=== PATIENT | male | born 1965 | race Caucasian/White ===

== ENCOUNTER 2018-09-25 16:15 | Inpatient (IN) | payer OTHER ==
[~2018-09-25] VITALS: Ht 185.4 cm; Wt 68.9 kg
[2018-09-25 16:16] VITALS: BP 121/73
[2018-09-25 20:25] VITALS: BP 119/71
[2018-09-25 21:10] VITALS: BP 136/85
[2018-09-25 22:10] LABS: CALCIUM 8.8 mg/dL (8.5-10.1); CREATININE 0.6 mg/dL (0.7-1.3); POTASSIUM 3.9 mmol/L (3.5-5.1)
--- NOTE | 2018-09-26 02:42 | NUR ---
PT ARRIVED TO UNIT APPROX 2100 IN STABLE CONDITION, ADMISSION AND ASSESSMENT COMPLETED, CONSENTS SIGNED. PT C/O RIGHT HIP PAIN, MAINTAINING BEDREST PENDING ORTHO AND PT CONSULTS. ALSO CONSULTED CM FOR PLANNING. DENIES SOB OR NAUSEA. HAS A CONGESTED COUGH, REPORTS SMOKING 1/2-1 PPD CIGARETTES. UNKEMPT, MULTIPLE TATTOOS, SCABS/SCARS, BUT NO OPEN WOUNDS NOTED. IV FLUIDS STARTED; GOOD URINE OUPUT, VERY DARK YVONNE IN COLOR. GIVEN A SNACK AT HS. NO OTHER CONCERNS, WILL CONTINUE TO MONITOR.
[2018-09-26 06:00] VITALS: BP 134/77
[2018-09-26 07:41] VITALS: BP 136/77
--- NOTE | 2018-09-26 12:28 | NUR ---
PT ALERT XS 4 PLEASANT AND COOPERATIVE WITH CARE. IV FLUIDS DCD. PRN PO PAIN MED GIVEN. LUNGS COARSE BOWEL SOUNDS POSITIVE. PT TO HAVE PT/OT AND ASSESED FOR CANE OR WALKER. DR LYONS HERE AND STATES TO PATIENT NO SURGERY NEEDED. PT TO MOVE TO SENIOR SUITES ROOM 224.
--- NOTE | 2018-09-26 12:44 | NUR ---
PT ADMITTED RELATED TO RT ILIUM/ANTERIOR COLUMN ACETABULAR FX. CM REVIEWED CHART AND SPOKE WITH CARE TEAM. CM MET WITH PT AT BEDSIDE THIS DAY. PT IS A&O X4. CM ROLE INTRODUCED. PT INDICATED HE HAD BEEN LIVING ON THE STREETS [facility]. PT INDICATED HE HAD GONE TO [facility] AND WAS REFERRED TO [facility] WHEN HE HAD INITIALLY SUSTAINED THIS INJURY ON July. HE INDICATED HE DOESN'T HAVE A PCP OR A CLINIC HE FOLLOW AT IN THE COMMUNITY. PT INDICATED HIS FRIEND LYLE ARIAS IS A GOOD CONTACT FOR HIM . ORTHO INDICATED NO SURGERY IS INDICATED BUT THAT PT WILL BE TOUCH DOWN WEIGHT BEARING FOR 6WEEKS WITH CRTCHES OR A FWW. CM TO FOLLOW INDICATED WITH DC PLANNING.
[2018-09-26 13:24] VITALS: BP 130/87
--- NOTE | 2018-09-26 13:37 | NUR ---
PATIENT ARRIVED TO UNIT AT APPROX 1310 FROM 4E ROOM #418. PATIENT SETTLED TO UNIT AND MEAL TRAY SETUP. CALL LIGHT WITHIN REACH.
[2018-09-26 21:06] VITALS: BP 110/80
--- NOTE | 2018-09-27 04:43 | NUR ---
Assumed pt care at 1900. Pt A/OX4,VSS.C/o pain to right ribcage/hip LOP 810 medicated with Laramie per EMAR with partial relief reported. Pt is on a touchdown weight bearing limitation to RLE,only up side of bed to use urinal at night. Does have a congested non productive cough.Pt has a strong body odor prompted at HS to take a shower and again at this time but he has declined stating not now will continue to encourage pt to take a shower. Pt resting quietly with no distress noted,calls appropriately.Call light/personal items within reach.
--- NOTE | 2018-09-27 08:19 | NUR ---
A&0X4, IS NOT AMBULATING AT THIS TIME, STATES HE THINKS HE NEEDS SURGERY, ENCOURAGED HIM TO MAKE POSITION CHANGES IN BED HE STATES HE CANNOT GET UP, REPORTS STATES HES UP WITH PT. DIDN'T SEE ANY VISIBLE BRUISING ON R SIDE, SHOWED HIM, AGAIN, HOW TO USE CALL LIGHT FOR ANY NEEDS WELL THE BED CONTROLS, GAVE EDUCATION ABOUT BOWEL MEDS ACCOMPANYING HIS PAIN MEDICATION. DENIES NEED FOR NICOTINE PATCH. ENCOURAGED HIM TO USE CALL LIGHT FOR ANY NEEDS
[2018-09-27 09:03] VITALS: BP 114/83
--- NOTE | 2018-09-27 11:52 | NUR ---
SW reviewed chart and spoke with nursing and attending physician. [facility] will evaluate or for possible admission to input acute rehab. [employer] to meet with pt to see if pt will qualify for a Medicaid or financial assistance. SW is following to assist as needed with discharge planning.
[2018-09-27 19:49] VITALS: BP 135/84
--- NOTE | 2018-09-28 06:34 | NUR ---
Assumed pt care at 1900. Pt is A/OX4.VSS. C/o right hip/ribs pain,medicated per EMAR with relief reported. Pt is on a toe touch weight bearing limitation on RLE,up to the side of the bed to use urinal at night.Bed alarm on and pt re-educated on fall safety since he doesn't call for help and verbalizes understanding protocol.Voiding adequately. Resting quietly with eyes closed no distress noted. Will continue to monitor pt.
[2018-09-28 07:45] VITALS: BP 115/77
--- NOTE | 2018-09-28 11:38 | NUR ---
PATIENT CARE WAS ASSUMED AT 0715.PATIENT IS ALERT AND ORIENTED X4.PATIENT HAS IV INTACT AND SALINE LOCKED.COMPLAINS OF PAIN 8/10, WILL GIVE PAIN MEDS WITH MORNING MED PASS.FALL PRECAUTIONS ARE IN PLACE.URINAL IS AT BEDSIDE.CALL LIGHT,PHONE, AND PERSONAL BELONGINGS ARE WITHIN REACH.
[2018-09-28 18:47] VITALS: BP 113/81
--- NOTE | 2018-09-29 04:32 | NUR ---
PATIENT ALERT AND ORIENTED X4. UP TO THE BATHROOM WITH ASSIST OF OLENA. C/O PAIN, PO MED GIVEN. LUNGS ARE DIMINISHED WITH WHEEZES. ON ROOM AIR. SLEPT MOST OF THE NIGHT.
[2018-09-29 07:45] VITALS: BP 115/83
--- NOTE | 2018-09-29 11:20 | NUR ---
PATIENT CARE WAS ASSUMED AT 0715.PATIENT IS ALERT AND ORIENTED X4.PATIENT HAS IV IN SALINE.PT HAS NO COMPLAINS OF PAIN WHEN LAYING DOWN WHEN PATIENT MOVES HIS PAIN CAN BE RATED AT AN 8/10.WILL CONTINUE TO MONITOR PAIN.PATIENT HAS FALL RISK IN PLACE.PT IS ABLE TO AMBULATE WITH WALKER WITH X1 ASSIST.CALL LIGHT,PHONE AND PERSONAL BELONGINGS WERE WITHIN REACH.
--- NOTE | 2018-09-29 16:31 | NUR ---
AMBER reviewed chart and spoke with nursing and attending physician. Pt is toe touch weight bearing. AMBER met with pt and friend at bedside to discuss discharge plan. Jorge A has evaluated pt for possible admission to in acute rehab. Pt states he was told he would be going to [facility]. SW explained that there is certain criteria that must be met for pt to go to [facility]. SW discussed alternate options: staying with any friends/family, homeless shelters, [facility], etc. Pt states he is not allowed to return to the [facility] and to several of the homeless shelters. Pt's friend states they have worked with Obdulio Oliva in the past, with [facility]. They state that he has helped people get into [facility] and [facility]. Pt is agreeable with these facilities. Pt does not have health insurance and has not had Medicaid. [facility] met with pt and pt is not 12+ months disabled. AMBER contacted Obdulio Pj, via text. Voice mailbox is full. kit planner faxed referrals to [facility] and [facility] for review. AMBER updated Director of Case Mgmt. AMBER is following to assist as needed with discharge planning.
--- NOTE | 2018-09-29 16:44 | NUR ---
DISCHARGE PLANNING. POST ACUTE CARE RECOMMENDED AT DISCHARGE. MEDICAID STATUS IS PENDING. [facility] EVALUATING PATIENT FOR PLACEMENT. REFERRALS ALSO FAXED TO [facility] FOR DISCHARGE PLACEMENT NEEDS. VERIFIED REFERRALS RECEIVED. ADMISSIONS COORDINATORS TO REVIEW REFERRALS AND CONTACT CM ONCE REVIEW COMPLETE. UNIT CM/SW AWARE. FOLLOWING TO ASSIST WITH DISCHARGE PLACEMENT NEEDS.
--- NOTE | 2018-09-30 04:25 | NUR ---
PATIENT ALERT AND ORIENTED X4. FRIEND AT BEDSIDE THROUGHTOUT THE NIGHT. MEDICATED X1 FOR PAIN AT TIME OF THIS NOTE. USING URINAL TO VOID. NOT OUT OF BED DURING THE NIGHT. COOPERATIVE WITH CARE. NICOTINE PATCH IN PLACE. RESTING QUIETLY. WILL MONITOR.
[2018-09-30 08:30] VITALS: BP 122/78
--- NOTE | 2018-09-30 18:26 | NUR ---
ASSUMED CARE OF PATIENT AT 0715, PATIENT ALERT AND ORIENTED X 4. UP WITH SBA WITH WALKER. PATIENT C/O PAIN WITH RIGHT PELVIC/HIP AREA, PATIENT HAS HAD HYDROCODONE 2 TABLETS X 2 THIS SHIFT WITH PARTIAL RELIEF WHEN NOT MOVING. NO IV ACCESS. PATIENT WORKED WITH PHYSICAL THERAPY TODAY, STILL A FALL RISK, WITH FALL PRECAUTIONS IN PLACE, TOE TOUCH WEIGHT BEARING. PATIENT HAS NON-PRODUCTIVE COUGH, NO SOB REPORTED. PATIENT HAD LIEN CHANGE BUT REFUSED SHOWER TODAY AND ORAL CARE. WILL CONTINUE TO MONITOR.
[2018-09-30 20:30] VITALS: BP 121/84
--- NOTE | 2018-10-01 04:56 | NUR ---
PATIENT ALERT AND ORIENTED X4. USING URINAL WITH YVONNE URINE. BEDREST DURING THE NIGHT. MEDICATED X1 WITH VICODIN FOR PAIN. HELD STOOL SOFTENER DUE TO REPORT OF LOOSE STOOLS DURING THE DAY. PATIENT IS COOPERATIVE WITH CARE AND PLEASANT. RESTING QUIETLY. WILL MONITOR.
[2018-10-01 07:45] VITALS: BP 114/76
--- NOTE | 2018-10-01 08:05 | NUR ---
PT IS A&0X4, AMB W/WALKER, IN GOOD SPIRITS, LIKES COFFEE, ENCOURAGED WATER W/EACH CUP OF COFFEE, GOOD APPETITE, POLITE, WILL ENCOURAGE FOR ANOTHER SHOWER, RA, ADVENTITIOUS LUNG SOUNDS, ENCOURAGED HIM TO DO DEEP SLOW BREATHING WHENEVER HE THINKS ABOUT IT EVEN IF IT MAKES HIM COUGH, HE DOES SUCCESSFUL RETURN DEMO, SHOWED HIM HOW HIS 02 SATS RAISE. ENCOURAGED HIM TO USE CALL LIGHT FOR ANY NEEDS
--- NOTE | 2018-10-01 17:35 | NUR ---
DISCHARGE PLAN FOR CM. MR. HARDING GIVES HIS CLOSE FRIEND CATALINA LANDEROS, PERMISSION TO CALL AND CHECK ON HIS WHEREABOUTS AND DISCHARGE PLANS ALSO SHE GAVE US THE INFORMATION ON REBECCA KAT WHO WANTS TO COME UP AND VISIT [phone]
[2018-10-01 20:07] VITALS: BP 123/82
--- NOTE | 2018-10-02 04:20 | NUR ---
PATIENT ALERT AND ORIENTED X4. UP WITH ONE ASSIST, HOWEVER, NOT OOB DURING THE NIGHT. FRIEND AT BEDSIDE DURING THE NIGHT. REFUSED DOCUSATE SODIUM DUE TO LOOSE STOOLS (NOT SEEN BY THIS NURSE). C/O PAIN TO HIS PELVIC AREA AND MEDICATED, PATIENT ABLE TO SLEEP WELL DURING THE NIGHT. WILL MONITOR.
[2018-10-02 06:29] VITALS: BP 108/79
[2018-10-02] MEDS ORDERED: COLACE 100 MG100 MG PO (09:19)
[2018-10-02] MEDS ORDERED: HYDROCODON-ACE1 EAC7 PO (09:19)
[2018-10-02 09:55] VITALS: BP 108/79
--- NOTE | 2018-10-02 10:55 | NUR ---
ASSUMED CARE OF PATIENT THIS MORNING. PATIENT IS A&OX4. HE GETS UP WITH MINIMUM ASSIST/ TOUCHDOWN WEIGHT BEARING. NICOTINE PATCH WAS APPLIED TO RIGHT ARM. PATIENT IS TO BE DISCHARGED HOME WITH SELF CARE. WILL CHECK WITH CASE MANAGEMENT TO SEE IF PATIENT WILL NEED ARRANGEMENTS ON TEMPORARY LIVING. HE ALSO HAS TWO PRESCRIPTIONS HE WILL BE DISCHARGED WITH. PATIENT REFUSED HIS STOOL SOFTENER AND MIRALAX THIS MORNING. HE HAS BEEN HAVING FREQUENT BOWEL MOVEMENTS. HE IS CURRENTLY SITTING IN BED WITH CALL LIGHT WITHIN REACH.
--- NOTE | 2018-10-02 12:31 | NUR ---
PATIENT BEING DISCHARGED HOME WITH SELF CARE. DISCHARGE INSTRUCTIONS REVIEWED WITH PATIENT. PATIENT BEING SENT HOME WITH TWO PRESCRIPTIONS. [facility] CALLED TO TAKE PATIENT TO THE [facility] DEPT EXIT FOR DEPARTURE. PATIENT HAS A CAB VOUCHER AND CAB SERVICES WILL BE CALLED ONCE PATIENT GETS TRANSPORTED TO [facility].
--- NOTE | 2018-10-02 13:23 | NUR ---
Following for d/c planning needs. Reviewed chart and spoke with PT, nurse and pt. Pt is being d/c today. Per previous CM note, referrals had been sent to skilled facilities. Pt said that he has a friend he called that will allow him to stay with her while he is recuperating. Nurse given cab voucher for pt to go to his friend's house. Pt said he is not interested in going to skilled facility. He and his friend also said that someone is helping them get into SNF in the future. No other needs identified.
== END 2018-10-02 12:55 | disposition home or self-care (01) | DRG 536 ==
LOC: ER 16:15 → 4E 20:16 → SICU 20:16 → EROBS 20:16 → 4E 21:00 → ENTRNSPT 09-26 12:35 → EDTRNSPTSTS 09-26 12:38 → SICU 09-26 13:16 → ENTRNSPT 10-02 12:27 → EDTRNSPTSTS 10-02 12:30 → SICU 10-02 12:55
PROVIDERS: Nurse Practitioner Family; ADMIT Hospitalist
DX: S32.431A Displaced fracture of anterior column [iliopubic] of right acetabulum, initial encounter for closed fracture (principal); S22.41XA Multiple fractures of ribs, right side, initial encounter for closed fracture; S32.301A Unspecified fracture of right ilium, initial encounter for closed fracture; F17.210 Nicotine dependence, cigarettes, uncomplicated; Y04.8XXA Assault by other bodily force, initial encounter; F10.10 Alcohol abuse, uncomplicated; Y93.89 Activity, other specified; Y92.89 Other specified places as the place of occurrence of the external cause; Y99.8 Other external cause status; Z59.0 Homelessness; Z71.6 Tobacco abuse counseling; Z71.41 Alcohol abuse counseling and surveillance of alcoholic; Z87.81 Personal history of (healed) traumatic fracture
CPT/HCPCS: 10084; 15002

== ENCOUNTER 2019-04-05 00:49 | Emergency (ER) | payer OTHER ==
[~2019-04-05] VITALS: Ht 185.4 cm; Wt 68.0 kg
[~2019-04-05 00:49] MED LIST: COLACE 100 MG100 MG PO; HYDROCODON-ACE1 EAC7 PO
[2019-04-05] MEDS ORDERED: NAPROSYN500 MG PO (01:18)
[2019-04-05 03:00] VITALS: BP 140/79
== END 2019-04-05 03:00 | disposition home or self-care (01) ==
LOC: ER 00:49
DX: G89.29 Other chronic pain (principal); M25.551 Pain in right hip; F17.210 Nicotine dependence, cigarettes, uncomplicated; Z59.0 Homelessness

== ENCOUNTER 2020-04-04 13:15 | Emergency (ER) | payer OTHER ==
[~2020-04-04] VITALS: Ht 167.6 cm; Wt 68.0 kg
[~2020-04-04 13:15] MED LIST changes: +NAPROSYN500 MG PO
[2020-04-04 13:16] VITALS: BP 130/79
[2020-04-04] MEDS ORDERED: IBUPROFEN 600600 M1 PO (14:55)
== END 2020-04-04 16:50 | disposition home or self-care (01) ==
LOC: ER 13:15
DX: S42.252A Displaced fracture of greater tuberosity of left humerus, initial encounter for closed fracture (principal); F10.920 Alcohol use, unspecified with intoxication, uncomplicated; F17.210 Nicotine dependence, cigarettes, uncomplicated; W18.09XA Striking against other object with subsequent fall, initial encounter; Y93.89 Activity, other specified; Y92.89 Other specified places as the place of occurrence of the external cause; Y99.8 Other external cause status

== ENCOUNTER 2020-04-11 04:11 | Emergency (ER) | payer OTHER ==
[~2020-04-11] VITALS: Ht 185.4 cm; Wt 69.0 kg
[~2020-04-11 04:11] MED LIST changes: +IBUPROFEN 600600 M1 PO
[2020-04-11 04:13] VITALS: BP 125/76
== END 2020-04-11 05:16 | disposition home or self-care (01) ==
LOC: ER 04:11
DX: S42.202D Unspecified fracture of upper end of left humerus, subsequent encounter for fracture with routine healing (principal); F17.210 Nicotine dependence, cigarettes, uncomplicated; Z79.1 Long term (current) use of non-steroidal anti-inflammatories (NSAID); V49.9XXD Car occupant (driver) (passenger) injured in unspecified traffic accident, subsequent encounter

== ENCOUNTER 2020-04-15 16:16 | Emergency (ER) | payer OTHER ==
[~2020-04-15] VITALS: Ht 185.4 cm; Wt 77.1 kg
[2020-04-15 19:21] VITALS: BP 00/00
== END 2020-04-15 19:23 | disposition home or self-care (01) ==
LOC: ER 16:16
DX: F10.920 Alcohol use, unspecified with intoxication, uncomplicated (principal); M25.512 Pain in left shoulder; F17.210 Nicotine dependence, cigarettes, uncomplicated; Z79.899 Other long term (current) drug therapy

== ENCOUNTER 2020-07-22 22:30 | Emergency (ER) | payer OTHER ==
[~2020-07-22] VITALS: Ht 185.4 cm; Wt 68.0 kg
[2020-07-22 22:34] VITALS: BP 125/74
== END 2020-07-23 00:30 | disposition home or self-care (01) ==
LOC: ER 22:30
DX: G89.29 Other chronic pain (principal); M25.512 Pain in left shoulder; F17.210 Nicotine dependence, cigarettes, uncomplicated; Z79.1 Long term (current) use of non-steroidal anti-inflammatories (NSAID)

== ENCOUNTER 2020-08-27 22:55 | Emergency (ER) | payer OTHER ==
[~2020-08-27] VITALS: Ht 188 cm; Wt 68.0 kg
[2020-08-27 22:57] VITALS: BP 105/65
== END 2020-08-27 23:40 | disposition home or self-care (01) ==
LOC: ER 22:55
DX: M25.512 Pain in left shoulder (principal); F17.210 Nicotine dependence, cigarettes, uncomplicated; Z79.1 Long term (current) use of non-steroidal anti-inflammatories (NSAID); Z59.0 Homelessness

== ENCOUNTER 2020-10-06 13:27 | Inpatient (IN) | payer OTHER ==
[~2020-10-06] VITALS: Ht 170.2 cm; Wt 59.0 kg
[2020-10-06 13:33] VITALS: BP 111/69; BP 126/82
[2020-10-06 15:59] LABS: ABSOLUTE NEUTROPHILS 8.9 thou/uL (1.4-8.2); BASOPHILS 0.7 % (0.0-2.0); EOSINOPHILS 0.5 % (0.0-3.0); HEMATOCRIT 42.9 % (42.0-52.0); HEMOGLOBIN 14.5 gm/dL (14.0-18.0); LYMPHOCYTES 8.1 % (24.0-44.0); MCH 35.1 pg (26.0-34.0); MCHC 33.9 g/dL (28.0-37.0); MCV 103.7 fL (80.0-100.0); MONOCYTES 5.5 % (1.0-8.0); PLATELET COUNT 244 thou/uL (150-400); POLYS 85.2 % (36.0-66.0); RBC 4.14 mil/uL (4.50-6.00); RDW 12.7 % (10.5-14.5); WBC 10.4 thou/uL (4.0-11.0)
[2020-10-06 16:08] LABS: CALCIUM 8.8 mg/dL (8.5-10.1); CREATININE 0.6 mg/dL (0.7-1.3); POTASSIUM 3.9 mmol/L (3.5-5.1)
[2020-10-06 16:15] LABS: ALBUMIN 3.9 g/dL (3.4-5.0); DIRECT BILIRUBIN 0.4 mg/dL (<0.1-0.2); TOTAL BILIRUBIN 2.1 mg/dL (0.2-1.0); TOTAL PROTEIN 7.6 g/dL (6.4-8.2)
--- NOTE | 2020-10-06 16:47 | EKG ---
[facility] [place] [address] ELECTROCARDIOGRAM REPORT Name: JESSICA WILLIAMSON [id number] Admission: 10/06/20 Attend Phys: Discharge: Date of : 69 Report #: [id number] [facility] ED Test Date: 2020-10-06 Test Time: 16:15:31 Pat Name: JESSICA WILLIAMSON Department: Room: Gender: M Model Dresser: YEN : 1965 Requested By: Kanwal Townsend Order Number: [id number] MD: Marcello Ware Measurements Intervals [place] Rate: 59 P: 64 CT: 111 QRS: 74 QRSD: 100 T: 76 QT: 498 QTc: 494 Interpretive Statements Sinus rhythm Multiple premature complexes, vent & supraven Borderline short CT interval Nonspecific T abnrm, anterolateral leads Borderline prolonged QT interval Baseline wander in lead(s) V1 No previous ECG available for comparison Electronically Signed On 10-06-2020 16:47:35 CDT by Marcello Ware [email or web address] <ELECTRONICALLY SIGNED> By: Marcello Ware MD, [facility] 10/06/20 1647 1614 14 Marcello Ware MD, FACC /EPI
[2020-10-06 17:33] VITALS: BP 111/69
[2020-10-06 17:57] VITALS: BP 146/82
--- NOTE | 2020-10-06 19:15 | NUR ---
PATIENT UP TO FLOOR AROUND 182. PATIENT BP ELEVATED, HOSPITALIST ROPE MAKER PAGED WITH NO RETURN OF CALL. ENDORSED THIS TO NIGHT NURSE TO FOLLOW UP WITH NURSE PRACTITIONER AT NIGHT.
[2020-10-06 19:23] VITALS: BP 138/84
--- NOTE | 2020-10-07 03:00 | NUR ---
PT CARE ASSUMED WITH PT IN BED.PT IS A/O X4.PT IS ON BEDREST AND NON WEIGHT BEARING ON RT HIP.PT ADMISSION COMPLETED AND ASSESSMENT DONE.DR RADHA Garcia CAME IN AND TALKED WITH PT ABOUT SURGERY TODAY.PT NPO FROM MIDNIGHT.PT C/O PAIN AND PAIN MANAGED WITH OXYCODONE AND ICEPACK ON RT HIP.PT IS ON ROOM AIR.PT IS HOMELESS.PT ON TELE NSR.WILL CONTINUE TO MONITOR
[2020-10-07 05:11] LABS: HEMOGLOBIN 12.8 gm/dL (14.0-18.0); MCHC 33.7 g/dL (28.0-37.0); MCV 103.7 fL (80.0-100.0); RBC 3.66 mil/uL (4.50-6.00); WBC 11.6 thou/uL (4.0-11.0)
[2020-10-07 05:14] VITALS: BP 151/83
[2020-10-07 05:32] LABS: ALBUMIN 3.5 g/dL (3.4-5.0); CALCIUM 8.8 mg/dL (8.5-10.1); CREATININE 0.8 mg/dL (0.7-1.3); MAGNESIUM 1.6 mg/dL (1.8-2.4); PHOSPHORUS 4.4 mg/dL (2.5-4.9); POTASSIUM 4.5 mmol/L (3.5-5.1)
[2020-10-07 08:07] VITALS: BP 144/102
[2020-10-07 10:46] VITALS: BP 139/82
--- NOTE | 2020-10-07 12:23 | NUR ---
PT ADMITTED RELATED TO RT HIP FRACTRE AND PAIN. CM REVIEWED CHART AND SPOKE WITH CARE TEAM. CM MET WITH PT AT BEDSIDE THIS DAY. PT APPEARED TO BE A&O X4. CM ROLE INTRODUCED. PT INDICATED HE IS HOMELESS AND HAD BEEN LIVING ON THE [address] ADMISSIONS REPRESENTATIVE. PT INDICATED THAT HE HAD BEEN INDEPENDENT WITH GAIT AND ADLS ADMISSIONS REPRESENTATIVE. PT INDICATED HE DOESN'T HAVE ANYWHERE TO GO TO RECOVER POST SURGERY AT THIS TIME. PT INDICATED NO PCP AND CLINIC THAT HE FOLLOWS AT AT THIS TIME HE INDICATED HE MOSTLY HOSPITAL HOPS. PT IS CONSENTING TO SURGICAL INTERVENTION. CM GAVE HEADS UP TO [facility] FOR POSSIBLE NEED FOR SCOTT STAY. CM FOLLOWING REGARDING DC PLANNING NEEDS.
--- NOTE | 2020-10-07 12:30 | NUR ---
ASSUMED PT CARE THIS AM. PATIENT IS A&OX4. PATIENT BP WAS INCREASED THIS AM, PHYSICIAN NOTIFIED AND ORDERS RECEIVED FOR IV BP MED, GIVEN PER EMAR. PATIENT COMPLAINED OF PAIN IN THE RIGHT HIP, GAVE PAIN MEDS AND RESPONDED WELL. IV PATENT, FLUIDS INFUSING. PATIENT REMAINS ON TELE. FALL PRECAUTIONS ARE IN PLACE, CALL LIGHT WITHIN REACH.
[2020-10-07 15:25] VITALS: BP 121/70
[2020-10-07 19:57] VITALS: BP 119/81
[2020-10-08 01:01] VITALS: BP 125/74
--- NOTE | 2020-10-08 02:09 | NUR ---
ASSESSED AT START OF SHIFT. PT RESTLESS IN BED. PER REPORT PT ARRIVED FROM SX AT 1830. ON ASSESSMENT NOTED BLOODY DRAINAGE ON RT HIP DRESSING. DRESSING CHANGED AND NEW GAUZE SECURED. PAIN MEDS GIVEN. PT ACCIDENTALLY PULLED OUT IV. NEW IV 22G INSERTED IN RT UA. IV INTACT AND FLUIDS INFUSING. FALL PREC IN PLACE AND CALL LIGHT AT REACH WILL CONT TO MONITOR.
[2020-10-08 04:38] VITALS: BP 95/53
[2020-10-08 07:30] VITALS: BP 107/59
--- NOTE | 2020-10-08 13:40 | NUR ---
ASSUMED PT CARE AROUND 0710. PT ALERT X ORIENTED X4. ON 2L/O2/NC. USES BEDSIDE URINAL. ON REGULAR DIET. IV RT UA/ACTATED RINGERS RUNNING AT 100MLS/HR. PAIN PARTIALLY CONTROLLED BY PAIN MEDICINE. WORKED WITH PT X OT. PATIENT SITTING IN THE CHAIR. URINE TEA COLORED. FALL PRECAUTION IN PLACE. CALL LIGHT IN REACH. [facility] ONTINUE TO MONITOR.
--- NOTE | 2020-10-08 15:35 | NUR ---
Pt is POD#1 right intertrochanteric femur fracture closed reduction intramedullary nail fixation. Therapy assessed pt. [facility] consulted. Cm following regarding possible needs upon discharge.
[2020-10-08 15:48] VITALS: BP 115/59
[2020-10-08 20:00] VITALS: BP 114/73
[2020-10-09 05:59] LABS: HEMATOCRIT 22.9 % (42.0-52.0); MCH 36.3 pg (26.0-34.0); MCHC 35.3 g/dL (28.0-37.0); MCV 102.9 fL (80.0-100.0); RBC 2.23 mil/uL (4.50-6.00); RDW 12.6 % (10.5-14.5)
[2020-10-09 06:05] LABS: HEMOGLOBIN 8.1 gm/dL (14.0-18.0)
[2020-10-09 06:21] LABS: ALBUMIN 2.6 g/dL (3.4-5.0); CREATININE 0.5 mg/dL (0.7-1.3); POTASSIUM 3.5 mmol/L (3.5-5.1)
[2020-10-09 07:49] VITALS: BP 101/68
--- NOTE | 2020-10-09 08:01 | NUR ---
RECIEVED CARE OF THIS PATIENT AT 1900. DRESSING ON R HIP D/I. STATES ONLY HAS PAIN WHEN MOVES. PATIENT ALERT AND ORIENTED X4. USES URINAL. SLEPT MOST OF NIGHT.
[2020-10-09 09:39] LABS: HEMATOCRIT 23.7 % (42.0-52.0); HEMOGLOBIN 8.3 gm/dL (14.0-18.0)
--- NOTE | 2020-10-09 15:03 | NUR ---
[facility] HAS INDICATED THAT THEY ARE ABLE TO ACCEPT PT FOR SHORT POST ACUTE CARE STAY. ADMISSION IS DEPENDANT ON BED AVAILABILITY THEY WILL ACCEPT PT'S WITH PAYOR SOURCES FIRST. PT MIGHT NOT BE ABLE TOGO TO [facility] UNTIL THE BEGINING OF NEXT WEEK. OPEN TENTER OPERATOR INDICATED THAT THEY COULD DOUBLE TREAT WITH THERAPY THIS WEEKEND TO POTENTIALLY NOT NEED A 5N STAY. PT HAD REFUSED THERAPY TODAY. CM FOLLOWING REGARDING DC PLANNING.
--- NOTE | 2020-10-09 15:20 | NUR ---
ASSUMED CARE OF PT THIS MORNING AT 0700. PT WAS ADMITTED FOR POST SURGERY REPAIR OF THE RIGHT HIP. PT HAS DRESSING ON RIGHT INCISION SITE WITH NO VACUPUMP. PT IS A/OX4 AND CAN BE FORGETFUL. SKING IS W/D/P, NO TENTING AND INTACT. DRESSING IS CDI. LUNGS ARE CLEAR ALL PRITCHARD. ASSESSMENTS OTHERWISE UNREMARKABLE. CALL LIGHT IN PLACE ALONG WITH OTHER NEEDS.
[2020-10-09 15:29] VITALS: BP 117/95
[2020-10-09 21:03] VITALS: BP 102/67
[2020-10-09 21:06] VITALS: BP 102/67
[2020-10-10 03:50] VITALS: BP 108/63
--- NOTE | 2020-10-10 04:39 | NUR ---
ASSUMED PT CARE AT AROUND 1915HRS. PT DENIES PAIN AT REST-HE REPORTS PAIN GOING TO 9/10 WITH MOVT.PT FEBRILE, TREATED WITH TYLENOL. R HIP HAS A DRSG C/D/I. SCDS IN PLACE. RLE WITH GOOD CSM.
[2020-10-10 08:29] VITALS: BP 101/57
[2020-10-10 09:32] LABS: HEMOGLOBIN 8.1 gm/dL (14.0-18.0)
--- NOTE | 2020-10-10 15:12 | NUR ---
[facility] HAS INDICATED THAT THEY ARE ABLE TO ACCEPT PT FOR SHORT POST ACUTE CARE STAY. ADMISSION IS DEPENDANT ON BED AVAILABILITY THEY WILL ACCEPT PT'S WITH PAYOR SOURCES FIRST. PT MIGHT NOT BE ABLE TO GO TO [facility] UNTIL THE BEGINING OF NEXT WEEK. PHLEBOTOMY SPECIALIST INDICATED THAT THEY COULD DOUBLE TREAT WITH THERAPY THIS WEEKEND TO POTENTIALLY NOT NEED A 5N STAY. PT WORKED WITH THERAPY TODAY. CM FOLLOWING REGARDING DC PLANNING.
[2020-10-10 19:46] VITALS: BP 94/57
--- NOTE | 2020-10-10 19:52 | NUR ---
Assumed pt care this am, vs stable. Was braxton to work with PT. Pain medications given, partial relief is noted. diet and medications are well tolerated. Friends were at the bedside, pt is lookng forward fto going to rehab, awaiting bed. POC followed, with nos signs or verbalizations iof distress noted. Endorsed to the night nurse.
--- NOTE | 2020-10-11 04:00 | NUR ---
R HIP WITH DRSG INTACT. PT RECEIVED OXY X 1 FOR PAIN. PT DENIES COUGH.GOOD CSM TO RLE.
[2020-10-11 09:42] LABS: HEMATOCRIT 22.2 % (42.0-52.0); MCHC 35.9 g/dL (28.0-37.0); MCV 100.3 fL (80.0-100.0); RBC 2.22 mil/uL (4.50-6.00); RDW 12.7 % (10.5-14.5)
[2020-10-11 10:00] LABS: ALBUMIN 2.6 g/dL (3.4-5.0); CALCIUM 8.7 mg/dL (8.5-10.1); CREATININE 0.7 mg/dL (0.7-1.3); MAGNESIUM 1.8 mg/dL (1.8-2.4); POTASSIUM 3.1 mmol/L (3.5-5.1); TOTAL BILIRUBIN 1.8 mg/dL (0.2-1.0); TOTAL PROTEIN 6.6 g/dL (6.4-8.2)
[2020-10-11 10:53] VITALS: BP 92/58
[2020-10-11] MEDS ORDERED: COLACE100 MG PO (17:54)
[2020-10-11] MEDS ORDERED: KEPPRA XR500 MG PO (17:55)
--- NOTE | 2020-10-11 19:39 | NUR ---
Assumed pt care this am, vs stable. Was able to get a complete bed bath this pm by the friend. POC followed with no signs or verbalizations of distress noted. Pain is managed with medications, ambulation encouraged. Diet and medications are tolerated well. Endorse to the caustic cresylate shift superintendent.
[2020-10-11 21:08] VITALS: BP 104/71
[2020-10-12 05:00] VITALS: BP 99/47
[2020-10-12 05:40] LABS: ABSOLUTE NEUTROPHILS 4.7 thou/uL (1.4-8.2); BASOPHILS 0.7 % (0.0-2.0); EOSINOPHILS 3.7 % (0.0-3.0); HEMATOCRIT 22.8 % (42.0-52.0); HEMOGLOBIN 7.9 gm/dL (14.0-18.0); LYMPHOCYTES 22.8 % (24.0-44.0); MCH 35.6 pg (26.0-34.0); MCHC 34.7 g/dL (28.0-37.0); MCV 102.5 fL (80.0-100.0); MONOCYTES 19.3 % (1.0-8.0); PLATELET COUNT 376 thou/uL (150-400); POLYS 53.5 % (36.0-66.0); RBC 2.22 mil/uL (4.50-6.00); RDW 12.7 % (10.5-14.5); WBC 8.8 thou/uL (4.0-11.0)
[2020-10-12 05:53] LABS: ALBUMIN 2.5 g/dL (3.4-5.0); CALCIUM 8.7 mg/dL (8.5-10.1); CREATININE 0.7 mg/dL (0.7-1.3); MAGNESIUM 1.9 mg/dL (1.8-2.4); PHOSPHORUS 4.3 mg/dL (2.6-4.7); POTASSIUM 4.3 mmol/L (3.5-5.1); TOTAL BILIRUBIN 1.7 mg/dL (0.2-1.0); TOTAL PROTEIN 6.5 g/dL (6.4-8.2)
--- NOTE | 2020-10-12 07:42 | NUR ---
Assumed pt care at 1900. A/OX4,VSS. C/o pain to right hip with movement,medicated per EMAR with some relief reported. Voiding per urinal,no BM shift. Dsg to right hip changed d/t to hanging loose,jean claude in place,edges well approximated. Fall precautions in place,calls approp for help.
[2020-10-12 09:12] VITALS: BP 113/65
[2020-10-12 18:12] VITALS: BP 112/68
[2020-10-12 19:50] VITALS: BP 110/74
--- NOTE | 2020-10-12 20:02 | NUR ---
Assumed pt care this am, VS stable. Pain is managed with medications, partial relief is noted. Pain gets worse with activity. POC followed with no signs or verbalizations of distress noted. Was able to work with PT. Endorsed to the night nurse.
--- NOTE | 2020-10-13 04:32 | NUR ---
ALERT AND ORIENTED. R HIP WITH DRSG INTACT. MILD BRUISING TO R THIGH. PT C/O PAIN ONLY WHEN HE MOVES AROUND, AT REST, PT IS COMFORTABLE. NO FURTHER COMPLAINS OR CONCERNS.
[2020-10-13 07:39] VITALS: BP 105/67
--- NOTE | 2020-10-13 09:32 | NUR ---
Assess for length of stay. S/p hip fracture with surgical intervention on 10/07. Pt is homeless, hx alcoholism. Visit this am, ate 75% breakfast and states appetite much better since pain level improved. Very poor dentition, prefers softer foods, able to order from alternative menu. B12 levels low-on IM supplemenation x 5 doses. Also on folic acid, thiamine. Pt reports has been "thin" for several years. Doesn't feel like he has lost wt, but [employer] wts show about 20 lb loss x 2 yrs. Has ensure pudding ordered, however pt prefers ensure enlive instead so will change. Low nutrition risk with appropriate nutrition interventions in place.
[2020-10-13] MEDS ORDERED: OXYCODONE HCL 55 MG PO (09:47)
[2020-10-13] MEDS ORDERED: ACETAMINOPHEN325 M1 PO (09:48)
--- NOTE | 2020-10-13 11:02 | NUR ---
ASSUMED PT CARE FROM [facility]. PT IS ALERT & ORIENTED X4. PT HAS IV SITE ON R AC. PT USES URINAL. PT C/O OF PAIN AND GIVEN PAIN MEDICATION PER PT REQUEST. PT TOLERATED DIET AND MEDICATION WELL. PT ON THE BED, BED ON THE LOWEST POSITION, SIDE RAILS UP, CALL LIGHT WITHIN REACH. WILL CONTINUE TO MONITOR PT. FOLLOW POC.
--- NOTE | 2020-10-13 14:28 | NUR ---
SW reviewed chart and spoke with nursing and attending physician. Pt is progressing towards goals for discharge. SW discussed case with [facility] rehabilitation services counselor, who states they will have a bed for pt tomorrow. SW met with pt at bedside to provide update. Pt is aware and in agreement with discharge plan. SW is following to assist as needed with discharge planning.
[2020-10-13 16:07] VITALS: BP 89/61
[2020-10-13 19:26] VITALS: BP 99/63
--- NOTE | 2020-10-14 03:20 | NUR ---
PT IN BED WATCHING TV AT SHIFT CHANGE. NO C/O PAIN OR DISCOMFORT. STATED PAIN ONLY NOTED UPON MOVING OR REPOSITIONING. CURRENT PAIN A 0/10 SCALE. PT SLEPT ABOUT 4HOURS UP AT 0100 REQUESTING COFFEE CURRENT PAIN NOTED A 10/10 GAVE PRN PAIN MEDS EFFECTIVE IN BED WATCHING TV @0322. D/C ORDERS FOR REHAB NOTED.
[2020-10-14 04:06] VITALS: BP 98/56
[2020-10-14 07:15] VITALS: BP 97/62
--- NOTE | 2020-10-14 08:56 | NUR ---
ASSUMED PT CARE THIS AM. PT IS ALERT & ORIENTED X4. PT HAS IV SITE ON R AC SALINE LOCKED. PT USES URINAL AND BSC. PT C/O OF PAIN ON R HIP AND GIVEN PAIN MEDICATION. PT HAS BRUISES ON R HIP. CHANGED R HIP DRESSING THIS AM. PT ON ROOM AIR. PT TOLERATED MED WELL. PT ON THE BED EATING BREAKFAST, BED ON THE LOWEST POSITION, SIDE RAILS UP, CALL LIGHT WITHIN REACH. WILL CONTINUE TO MONITOR PT. FOLLOW POC.
[2020-10-14 10:35] LABS: HEMATOCRIT 29.9 % (42.0-52.0)
--- NOTE | 2020-10-14 11:03 | NUR ---
on-going assessment: cm reviewed chart and spoke with liason from who reports they can accept patient today. CM NOTIFIED ATTENDING AND PLANS TO DISCHARGE TO TODAY. PT IS AGREEABLE WITH PLAN.
[2020-10-14] MEDS ORDERED: FERRETTS325 MG PO (12:41)
== END 2020-10-14 16:14 | DRG 480 ==
LOC: ER 13:27 → EROBS 17:06 → 4W 18:03 → 4S 10-13 07:09
PROVIDERS: Emergency Medicine; Hospitalist; Internal Medicine; Nurse Practitioner Family; ADMIT Surgery; ATTEND Surgery
PROC: 0QS606Z Reposition Right Upper Femur with Intramedullary Internal Fixation Device, Open Approach (ICD-10-PCS; principal; 2020-10-07)
DX: S72.141A Displaced intertrochanteric fracture of right femur, initial encounter for closed fracture (principal); E43 Unspecified severe protein-calorie malnutrition; D62 Acute posthemorrhagic anemia; F10.20 Alcohol dependence, uncomplicated; F12.90 Cannabis use, unspecified, uncomplicated; W18.39XA Other fall on same level, initial encounter; I10 Essential (primary) hypertension; E83.42 Hypomagnesemia; E87.6 Hypokalemia; E53.8 Deficiency of other specified B group vitamins; Z20.822 Contact with and (suspected) exposure to COVID-19; J45.909 Unspecified asthma, uncomplicated; Z79.899 Other long term (current) drug therapy; Z87.891 Personal history of nicotine dependence; Y93.89 Activity, other specified; Y92.89 Other specified places as the place of occurrence of the external cause; Z68.20 Body mass index [BMI] 20.0-20.9, adult; Y99.8 Other external cause status
CPT/HCPCS: 10045; 10047; 10102; 50010; 50101; 50133; 50386; 50635; 51412; 51538; 52304; 56525; 57092; 57865; 58765; 58766; 58767; 62110; 62900; 70005

== ENCOUNTER 2020-10-14 09:25 | Inpatient (IN) | payer OTHER ==
[~2020-10-14] VITALS: Ht 185.4 cm; Wt 67.1 kg
[~2020-10-14 09:25] MED LIST changes: +ACETAMINOPHEN325 M1 PO; +COLACE100 MG PO; +KEPPRA XR500 MG PO; +OXYCODONE HCL 55 MG PO
[2020-10-14] MEDS ORDERED: FERRETTS325 MG PO (12:41)
--- NOTE | 2020-10-14 17:00 | NUR ---
PT ARRIVED TO UNIT WITH HIS SIG. OTHER IZZY. PT STATED HE WAS UP IN THE UNDERPASS AND WAS COMEING DOWN TO MAKE MONEY WHEN HE SLIPPED ON MUD AND SLID. PT THEN CAME TO HOSPITAL. PT UP IN RECLINER CHAIR AT THIS TIME. PT STATED HE HAS PAIN OF 10 ON 1-10 SCALE WITH MOVEMENT. PT STATED HE USED TO SMOKE AND DRINK ALCOHOL. HE STATED HE SMOKED SINCE HE WAS 16 YRS OLD. PT STATED HE USED TO DRINK WHISKEY IF HE HAD A COLD VIA HIS GRANDFATHER. PT HAS NICOTINE PATCH ON. PT DRESSING D/I TO RT HIP. PT ON ROOM AIR. PT STATED HE HAD A BM YESTERDAY. PT BUTTOCKS WAS RED AND GOT Z-GUARD FROM 4TH FLOOR.
[2020-10-14 19:30] VITALS: BP 103/56
--- NOTE | 2020-10-14 23:37 | NUR ---
ASSUMED CARE OF PT AT 1915. PT IS A&OX4. IS ON ROOM AIR. IS STABLE. REPORTS PAIN IN RIGHT HIP 03/15. MANAGING PAIN WITH ORAL PAIN MEDS & OTHER THERAPUETIC TECHNIQUES. PT REPORTED THAT HE WAS TAKING 10 MG OF OXY IR BEFORE BEING TRANSFERRED TO THE REHAB UNIT. HE HAS 5 MG ONLY, WHICH PT STATES IS NOT ADEQUATELY MANAGING PAIN & WOULD LIKE TO RESUME 10MG TX REGIMEN. RECYCLER NOTIFIED. ONETIME DOSE WAS ADMINISTERED. WILL HAVE DAY SHIFT NURSE TO SPEAK WITH DOCTOR REGARDING IN THE AM. DRSG TO HIP IS C/D/I. HIP & FALL PRECAUTIONS CONTINUED THIS SHIFT. HOURLY ROUNDING CONTINUED WELL. PT IS UP WITH 1 ASSIST, GB, WALKER. LABS & VITLAS REVIEWED. WILL CONTNUE TO MONITOR. CALL LIGHT WITHIN REACH. PT IS ABLE TO READJUST & TURN SELF IN BED.
[2020-10-15 05:24] LABS: HEMATOCRIT 25.4 % (42.0-52.0); HEMOGLOBIN 8.9 gm/dL (14.0-18.0); MCH 35.2 pg (26.0-34.0); MCV 100.4 fL (80.0-100.0); RBC 2.53 mil/uL (4.50-6.00); RDW 13.2 % (10.5-14.5); WBC 9.3 thou/uL (4.0-11.0)
[2020-10-15 05:32] LABS: CALCIUM 9.2 mg/dL (8.5-10.1); CREATININE 0.7 mg/dL (0.7-1.3); POTASSIUM 4.1 mmol/L (3.5-5.1)
[2020-10-15 07:15] VITALS: BP 106/59
--- NOTE | 2020-10-15 09:18 | NUR ---
PT RESTING IN BED THIS AM. PT STATED HIS PAIN TO RT HIP WITH MOVEMENT IS 10. DRESSING IS D/I. PT UP WITH WALKER THIS AM ALSO WITH PT. GAVE PT AN ICE PACK FOR PRN USE OF PAIN. PT ALSO TOOK MEDS PO WITH THIN WATER.
--- NOTE | 2020-10-15 09:24 | NUR ---
ADM OXYCODONE 5MG PO FOR PAIN TO RT HIP OF 9 ON 1-10 SCALE.
--- NOTE | 2020-10-15 13:21 | NUR ---
Nutrition: pt transferred to rehab S/P hip fracture with surgical intervention 10/07. Pt is homeless and hx ETOH. Notified of weight loss. Pt assessed by RD on 10/13. Pt did not feel as if he had lost weight but [facility] records show 20# in 2 years. Pt does walk a lot due to homelessness. Prefers softer foods, able to order from alternative menu. Intake has been 50-100% of meals and 100% of ensure enlive supplements which he receives TID. Consider low nutrition risk with appropriate nutrition interventions in place.
--- NOTE | 2020-10-15 13:35 | NUR ---
PT RECIEVED OXYCODONE 5MG PO FOR PAIN TO RT HIP. DOSE OF MEDICATION WAS NOT BEING EFFECTIVE WITH PAIN CONTROL. DR. KING WAS PAGED FOR ORDERS TO INCREASE PAIN MEDICATION DOSE.
--- NOTE | 2020-10-15 14:36 | NUR ---
chart review. cm tried to visit with him this am and he was with ot. then cm called to room and he was working with physical therapy, also had friend male humberto visiting. noted he is homeless, had lived on streets, no dme, no pcp. will cont following s needed for dc needs. 5n liaison passed on check with [facility] [phone].
[2020-10-15 19:55] VITALS: BP 108/70
--- NOTE | 2020-10-16 02:11 | NUR ---
PT ASSESSMENT COMPLETED AND VSS. MEDS GIVEN ORDERED AND WELL TOLERATED. FALL PRECAUTIONS IN PLACE. DSG ON RIGHT FEMOR DRY AND INTACT. SUPPORTIVE SPOUSE AT BEDSIDE. PRN PAIN MEDICATION WORKING WELL. PT VOIDING LARGE AMOUNT OF YELLOW URINE. SLEEPING WELL. WILL CONTINUE TO MONITOR FREQUENTLY.
[2020-10-16 08:46] VITALS: BP 94/57
--- NOTE | 2020-10-16 11:20 | NUR ---
ASSUMED CARE AT 0700. ALERT AND ORIENTATED X 3. REPORTED PAIN IN R FEMUR INCISION SITE AND MEDICATED WTIH OXYCODONE 5MG WITH GOOD RELIEF. UP WITH ASSIST WBAT. DRESSING TO R FEMUR DONE, NOTED A SLIGHT BIT OF SWELLING IN THE LOWER INCISION SITE. NO PAIN ON TACTILE STIMULATION. AFEBRILE. NO INC PAIN. DIURESING ADEQ, LAST BM ON 10/15. APPETITE FAIR. CONT TO MONITOR.
[2020-10-16 19:45] VITALS: BP 105/62
--- NOTE | 2020-10-16 22:25 | NUR ---
ASSUMED CARE OF PT AT 1920. PT IS A&OX4. IS ON ROOM AIR. IS STABLE. REPORTED PAIN IN RIGHT HIP THAT IS BEING MANAGED WITH PAIN MEDS & OTHER THERAPUETIC TECHNIQUES. DRSG C/D/I. HIP PRECAUTIONS CONTINUED. IS UP WITH 1 ASSIST, GB, WALKER. FALL PRECAUTIONS & HOURLY ROUNDING CONTINUED THIS SHIFT. LABS & VITALS REVIEWED. PT IS ABLE TO TURN SELF IN BED. IS CURRENTLY ASLEEP. CALL LIGHT WITHIN REACH. WILL CONTINUE TO MONITOR.
--- NOTE | 2020-10-17 07:45 | NUR ---
PT A&OX4, PTC/O PAIN TO RLE,HIP. PO PAIN PILLS GIVEN WITH STATED GOOD RELIEF. PT IN BED WITH HOB UP AWAITNG BREAKFAST. CALL LIGHT WITHIN REACH. WILL CONTNIUE TO MONITOR.
[2020-10-17 08:00] VITALS: BP 102/64
--- NOTE | 2020-10-17 17:49 | NUR ---
PT WORKED WITH THERAPIES TODAY. PT STATES PAIN IS GETTING BETTER AND HIS MOBILITY IS GETTING BETTER. DRESSING CHANGED X2, 2ND INCISION WAIH SMALL SEROSANGUINOUS DRAINAGE, THIS NURSE MARKED AREA OF REDNESS AROUND BOTH INCISION SITES US DONE TODAY RESULTS SHOW SEROMA/HEMATOMA AT INCISION SITES. DR. GLOVER PAGED, WILL PAGE AGAIN. CALL LIGHT WITHIN REACH. WILL CONTINUE TO MONITOR.
[2020-10-17 20:00] VITALS: BP 99/58
--- NOTE | 2020-10-18 04:29 | NUR ---
assumed care approx 1900 evening 10/17. pt sitting up in bed at change of shift. pt alert and oriented x4, pleasant and cooperative. pt taking meds with water tolerating well. pt voiding per urinal. pt appears to be sleeping soundly. bed alarm on and call light in reach. will continue to monitor.
[2020-10-18 07:32] VITALS: BP 90/51
--- NOTE | 2020-10-18 09:09 | NUR ---
PT AWAKE AT THIS TIME IN BED. PT STATED HE HAS PAIN TO RT THIGH AREA OF 10 ON 1-10 SCALE. PT SEEMS IRRITABLE THIS AM AND STATED HE IS MAD AT EVERYONE. PT IS RUBBING RT THIGH. ADM OXYCODONE 10MG PO FOR PAIN CONTROL. PT WAS UP WORKING WITH THERAPY THIS AM WITH WALKER.
--- NOTE | 2020-10-18 12:53 | NUR ---
ADM OXYCODONE 5MG PO FOR PAIN OF 8 ON 1-10 SCALE. PT WANTED TO KNOW WHERE WAS THE OTHER TAB. REMINDED PT THAT HE GETS ONE TAB FOR THE Q4HR PAIN MED. PT UNDERSTOOD. PT IN BETTER SPIRITS AT THIS TIME. PT FRIEND IZZY IS HERE.
--- NOTE | 2020-10-18 12:55 | NUR ---
PLACED LIDODERM PATCH TO RT THIGH. PT WORKING WITH OT AT THIS TIME. PT WAS ABLE TO STAND UP AND HAVE PATCH APPLIED. PT DRESSING D/I TO RT HIP.
--- NOTE | 2020-10-18 17:50 | NUR ---
ADM OXY 10MG PO FOR PAIN TO RT HIP PT STATED HIS PAIN IS BETTER IF NOT MOVING.
[2020-10-18 20:54] VITALS: BP 93/64
[2020-10-19 07:30] VITALS: BP 99/62
--- NOTE | 2020-10-19 09:21 | NUR ---
PT LYING IN BED RESTING. PT STATED HIS PAIN WAS 10 ON 1-10 SCALE. ADM OXYCODONE 5MG PO FOR PAIN TO RT HIP. PT STATED HIS PAIN IS RIGHT ON THE INCISION AREA AT THIS TIME. PT LUNGS CLEAR AND ON ROOM AIR. PT WAS THANKFUL ABOUT NO THERAPY TODAY, THEN THERAPIST WALKED. PT WAS NOT HAPPY, BUT PT WAS OK WITH IT. PT STATED HE IS NOT GOING TO GET ANY BETTER WITH ALL THIS THERAPY. PT WANTED TO LET MED KICK IN BEFORE THERAPY.
--- NOTE | 2020-10-19 15:36 | NUR ---
CHECKING ON PT FOR PAIN CONTROL. PT WAS RESTING WITH EYES CLOSED.
--- NOTE | 2020-10-19 18:49 | NUR ---
PT REFUSED THERAPY TODAY, THERAPIST STATED SHE APPROACHED HIM X4 TIMES TODAY AND HE REFUSED.
[2020-10-19 19:31] VITALS: BP 104/63
--- NOTE | 2020-10-20 00:29 | NUR ---
ASSUMED CARE OF PT AT 1915 ON 10/19/20. PT IS A&OX4. IS ON ROOM AIR. IS STABLE. REPORTS PAIN IN RIGHT HIP THAT IS BEING MANAGED WITH ORAL MEDS & OTHER THERAPUETIC TECHNIQUES. DRSG C/D/I. WAS CHANGED BY DAY SHIFT NURSE THIS EVENING. HIP PRECAUTIONS MAINTAINED. PT IS UP WITH 1 ASSIST GB WALKER. FALL PRECAUTIONS & HOURLY ROUNDING CONTINUED THIS SHIFT. PT IS ABLE TO TURN SELF IN BED. LABS & VITALS REVIEWED. WILL CONTINUE TO MONITOR.
[2020-10-20 07:15] VITALS: BP 101/64
--- NOTE | 2020-10-20 12:26 | NUR ---
ASSUMED CARE AT 0700. SLEPT OFF AND ON. REPORTED ONGOING PAIN IN HIS R FEMUR INCISION SITE AND TREATED WITH OXYCODONE WITH PARTIAL RELIEF. APPETITE IS FAIR. PT ENC TO INCREASE HIS PROTEIN INTAKE AND TO DRINK HIS SUPPLEMENT. HE VERBALIZES UNDERSTANDING. NOTED SLIGHT DRAINAGE AND REDNESS TO INCISION SITE. NON TENDER TO TOUCH. ON CEPHALEXIN STARTING TODAY. DR BARNARD RETURNED CALLED AND SAW PT TODAY AND ORDER TO REMOVE GIANNA ON TUESDAY AND CONT TO MONITOR, OK TO APPLY [place] BANDAGE TO SITE.
--- NOTE | 2020-10-20 14:32 | NUR ---
left message, requested call back [facility] # [phone]. will cont following as needed for dc needs.
[2020-10-20 19:47] VITALS: BP 106/70
--- NOTE | 2020-10-21 02:31 | NUR ---
HIP DRESSINGS DRY AND INTACT. PATIENT DOES NOT WANT TO SLEEP IN BED TONIGHT, IS USING URINAL WHILE SITTING IN CHAIR. ASKED FOR 2 PILLS TONIGHT AND WILL WANT AT LEAST ONE MORE AT 5 THIS MORNING WHEN IT WILL BE 8 HOURS LATER.
[2020-10-21 05:52] LABS: ABSOLUTE NEUTROPHILS 5.7 thou/uL (1.4-8.2); BASOPHILS 1.5 % (0.0-2.0); EOSINOPHILS 4.3 % (0.0-3.0); HEMOGLOBIN 9.8 gm/dL (14.0-18.0); LYMPHOCYTES 20.6 % (24.0-44.0); MCH 33.5 pg (26.0-34.0); MCHC 33.9 g/dL (28.0-37.0); MCV 98.7 fL (80.0-100.0); MONOCYTES 9.7 % (1.0-8.0); PLATELET COUNT 859 thou/uL (150-400); POLYS 63.9 % (36.0-66.0); RBC 2.93 mil/uL (4.50-6.00); RDW 13.7 % (10.5-14.5)
[2020-10-21 05:59] LABS: CREATININE 0.7 mg/dL (0.7-1.3); MAGNESIUM 1.9 mg/dL (1.8-2.4); POTASSIUM 3.8 mmol/L (3.5-5.1)
[2020-10-21 07:15] VITALS: BP 94/58
--- NOTE | 2020-10-21 12:35 | NUR ---
team meeting, reccomendation: pain reported little better today per ot. using fww with mobility. cont to look at places for him to stay, not heard back from the [facility], try reach a be the change check with [phone], or homeless [facility]. dc 10/22 with voucher fww, and cab ride home.
[2020-10-21 19:59] VITALS: BP 110/59
--- NOTE | 2020-10-22 03:08 | NUR ---
SLEEPING IN CHAIR AGAIN TONIGHT, PAIN UNDER CONTROL BETTER TONIGHT, STATES DOES NOT WANT ANOTHER PAIN MED YET. USING URINAL. DRESSINGS DRY AND INTACT, LIDODERM PATCH REMOVED FROM RIGHT GROIN AREA AT HS. HAS PLAN TO SEE A MR KAT HERE AT 2 PM TODAY TO DETERMINE CHOICE OF WHERE TO GO WHEN HE LEAVES HERE
[2020-10-22 07:15] VITALS: BP 112/69
--- NOTE | 2020-10-22 11:05 | NUR ---
ASSUMED CARE 0700. PATIENT IS ALERT AND ORIENTED. PATIENT RANKIN'S AND IS WBAT ON HIS RIGHT HIP. PATIENT RANKIN'S, TOOL TROUBLE SHOOTER ARE EQUAL. LUNGS ARE CLEAR AND DEMINISHED. ABD IS SOFT WITH BSX4. PATIENT IS UP WITH ASSIST OF 1 WITH GAIT BELT AND WALKER. UP IN CHAIR FOR MEALS. FALL AND SAFETY PROTOCOLS IN PLACE. C/O RIGHT HIP PAIN. MEDICATED WITH PRN PAIN MED. PATIENT CONTINUES TO PROGRESS SLOWLY TOWARDS D/C GOALS. WILL CONTINUE TO MONITER.
--- NOTE | 2020-10-22 13:13 | NUR ---
Nutrition followup: pt continues to eat very well, 100% of most meals on regular diet. No weight taken since admission. Orders meals as desired but denies need for diet consistency change due to missing dentition. Pt to D/C tomorrow but location is not yet determined.
--- NOTE | 2020-10-22 14:50 | NUR ---
jackelyn garnett visited with nhi today, he would like another phone call tomorrow rt patient told him he cant get himself to bathroom or shower alone, in order to try and help nhi find temporary place to stay he will have to be able to do these task on his own. cm passed on to 5n team. will cont following. nhi does not want to go to homeless custodial, [facility] has not returned cm calls either.
--- NOTE | 2020-10-22 14:55 | NUR ---
PATIENT C/O RASH TO HIS NECK AND UPPER BACK. THE PATIENT STATES THE RASH DOES NOT ITCH. DR. BOCANEGRA NOTIFIED. ORDER RECIEVED TO MONITER AND IF IT CHANGES TO NOTIFY HIM. WILL CONTINUE TO MONITER.
[2020-10-22 19:40] VITALS: BP 100/68
--- NOTE | 2020-10-22 23:05 | NUR ---
PT ASSESSMENT COMPLETED AND VSS. MEDS GIVEN ORDERED AND WELL TOLERATED. PRN PAIN MEDICATION HELPFUL. UP TO THE BATHROOM WITH ASST/GAIT/WALKER. DRESSING X 2 ON RIGHT LEG DRY AND INTACT. MILD RASH ON NECK AND UPPER BACK CONTINUE AND DR AWARE. JUST MONITORING AT THIS TIME. PT STATES THAT IT WAS FROM A [place] THAT HE WAS WEARING AND ALLERGIC TO. SLEEPING WELL AT THIS TIME. PT DENIES NEEDS. WILL CONTINUE TO MONITOR FREQUENTLY. PT FRUSTRATED WITH NEEDING ASST TO THE BATHROOM. EXPLAINED THAT IT WAS FOR HIS SAFETY.
[2020-10-23 08:00] VITALS: BP 91/55
--- NOTE | 2020-10-23 09:37 | NUR ---
andres notified by [employer] that he is able to transfer self, take him self to restroom , walking with walker. pt reported that mr garnett is fining him a snf to go to and it will take few days. education that dc today. andres called jackelyn garnett, he understands nhi mobility and able to restroom on his own, dc date is today, mr garnett asked cm if i had found him snf to go to because that is what nhi told him. passed on that i been working on [facility] care home and nhi refusing to go to care home. mr garnett will call back to let cm know if found anything for nhi to stay at. medication will need to be vouched 1 month no refills and no controlled medication.
--- NOTE | 2020-10-23 11:12 | NUR ---
ASSUMED CARE AT 0700. SLEPT FAIR. ALERT AND ORIENTATED X 3. PAIN IS STABLE THIS MORNING. DID NOT REQUEST FOR ANY PAIN MEDS. LIDOCAINE PATCH APPLIED TO R HIP. PT EDUCATED ABOUT USING THE CALL LIGHT FOR ASSISTANCE, PT VERBALIZES UNDERSTANDING. NO COMPLAINS OF UPER BACK RASH. REFUSED HIS BREAKFAST TODAY. PLAN FOR DC TODAY, UNSURE OF DISPOSITION. REFUSED TO GO TO A JAIL. WOUND CARE DONE TO HIS INCISIION, MILD DRAINAGE. PARTICIPATING WITH PHY THERAPY TODAY BUT REFUSED TO WORK WITH OT.
[2020-10-23] MEDS ORDERED: OXYCODONE HCL10 MG PO (11:24)
[2020-10-23] MEDS ORDERED: FERRETTS325 MG PO (12:13)
[2020-10-23] MEDS ORDERED: LIDOPATCH1 EACH TRANSDERM (12:14)
[2020-10-23] MEDS ORDERED: FOLIC ACID1 MG PO (12:14)
[2020-10-23] MEDS ORDERED: KEPPRA XR500 MG PO (12:14)
[2020-10-23] MEDS ORDERED: VITAMIN D21250 MC1 PO (12:14)
[2020-10-23] MEDS ORDERED: PROTONIX40 M2 PO (12:15)
[2020-10-23 13:16] VITALS: BP 91/55
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
--- NOTE | 2020-10-29 15:36 | PLAN ---
[facility] [place] [address] REHAB UNIT PLAN OF CARE Name: JESSICA WILLIAMSON Room #: 510-P [facility] IN M.R.#: [id number] Admission: 10/14/20 Attend Phys: Edmund Valenzuela MD Discharge: 10/23/20 Date of : 69 Report #: [id number] THIS REPORT FOR: cc: FAM - No family physician/PCP FAM - No family physician/PCP Edmund Valenzuela MD ~ DOC #: [id number] Edmund Valenzuela MD DATE OF SERVICE: 10/17/2020 HISTORY OF PRESENT ILLNESS: The patient was seen today in followup. He is in no distress. Please see the progress note as noted. Agree with findings. His pain has been better controlled with current management. He is afebrile. I examined his right hip. There appears to be some surgical site warmth with some mild surrounding erythema. He is progressing as far as his therapies and is ambulating 150 feet with a front-wheeled walker. Lower extremity dressing is min assist. Note that an ultrasound has been ordered to rule out a seroma involving the right hip. IMPRESSION: 1. Displaced right intertrochanteric fracture, status post IM fixation, 10/07/2020, weightbearing as tolerated. 2. Recurrent falls. 3. Acute blood loss anemia. 4. Hypokalemia with hypomagnesemia. 5. Protein calorie malnutrition. 6. ETOH abuse. 7. Vitamin D deficiency. PLAN: The overall plan of care is based on the pre-admit screen and information garnered from therapy assessments. 1. Estimated length of stay is probably fairly short, around 7-10 days. 2. Medical prognosis is reasonably good. 3. Anticipated interventions includes the interdisciplinary acute inpatient rehabilitation program. 4. Anticipated functional outcomes would be for the patient to become modified independent with transfers, mobility, and gait utilizing the walker. 5. Discharge destination would be to a homeless jail at this point. The patient is noted to be homeless. 6. Expected therapy by discipline includes PT and OT 1 to 1-1/2 hours per day, each five days a week throughout the duration of the acute inpatient rehabilitation stay. ADDENDUM: The patient's prognosis for significant practical improvement within a reasonable period of time appears good. Given the patient's complex medical condition and risk of further medical complication, rehabilitation services [address] [address] REHAB UNIT PLAN OF CARE Name: JESSICA WILLIAMSON Room #: 510-P [facility] IN M.R.#: [id number] Admission: 10/14/20 Attend Phys: Edmund Valenzuela MD Discharge: 10/23/20 Date of : 69 Report #: [id number] could not be safely provided at a lower level of care such as a care home facility. Edmund Valenzuela MD DGS/PUN <ELECTRONICALLY SIGNED> By: Edmund Valenzuela MD 10/29/20 1536 [id number] Edmund Valenzuela MD /nt
== END 2020-10-23 13:39 | disposition home or self-care (01) | DRG 535 ==
PROVIDERS: Nurse Practitioner; Nurse Practitioner Family; ADMIT Physical Medicine & Rehabilitation; ATTEND Physical Medicine & Rehabilitation
PROC: 8E0YXY8 Suture Removal from Lower Extremity (ICD-10-PCS; principal; 2020-10-22)
DX: S72.141A Displaced intertrochanteric fracture of right femur, initial encounter for closed fracture (principal); E43 Unspecified severe protein-calorie malnutrition; D62 Acute posthemorrhagic anemia; Z68.1 Body mass index [BMI] 19.9 or less, adult; I10 Essential (primary) hypertension; R29.6 Repeated falls; E87.6 Hypokalemia; E83.42 Hypomagnesemia; Y90.9 Presence of alcohol in blood, level not specified; W01.0XXA Fall on same level from slipping, tripping and stumbling without subsequent striking against object, initial encounter; F41.9 Anxiety disorder, unspecified; F17.210 Nicotine dependence, cigarettes, uncomplicated; E53.8 Deficiency of other specified B group vitamins; F10.20 Alcohol dependence, uncomplicated; Y83.1 Surgical operation with implant of artificial internal device as the cause of abnormal reaction of the patient, or of later complication, without mention of misadventure at the time of the procedure; Y93.89 Activity, other specified; Y92.89 Other specified places as the place of occurrence of the external cause; Y99.8 Other external cause status; Z59.0 Homelessness; Z91.81 History of falling
CPT/HCPCS: 10112

== ENCOUNTER 2021-07-06 01:32 | Emergency (ER) | payer OTHER ==
[~2021-07-06] VITALS: Ht 185.4 cm; Wt 65.8 kg
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
[~2021-07-06 01:32] MED LIST changes: +FERRETTS325 MG PO; +FOLIC ACID1 MG PO; +LIDOPATCH1 EACH TRANSDERM; +OXYCODONE HCL10 MG PO; +PROTONIX40 M2 PO; +VITAMIN D21250 MC1 PO
[2021-07-06] MEDS ORDERED: NAPROSYN500 MG PO (07:27)
[2021-07-06 10:01] VITALS: BP 122/73
== END 2021-07-06 16:56 | disposition left against medical advice (07) ==
LOC: ER 01:32
DX: T33.832A Superficial frostbite of left toe(s), initial encounter (principal); Z20.822 Contact with and (suspected) exposure to COVID-19; T33.831A Superficial frostbite of right toe(s), initial encounter; F17.210 Nicotine dependence, cigarettes, uncomplicated; Z79.899 Other long term (current) drug therapy